=== PATIENT | female | born 1960 | race Two or more races ===

== ENCOUNTER → 2021-08-20 | Outpatient (CLI) | payer SELFPAY ==
--- NOTE | 2021-08-20 16:26 | RAD ---
AP and Lateral Views of the Chest 08/20/2021 4:07 PM Indication: Reason: SHORT OF AIR Comparison: None Findings: There is a masslike opacity in the right midlung measuring approximately 2.5 cm in diameter . Findings are concerning for malignancy. Recommend CT chest with contrast for further characterizati on. Left lung grossly clear. Heart size normal. No acute osseous changes are appreciated. IMPRESSION: 2.5 cm masslike opacity right midlung. CT chest with contrast recommended for further tarun luation. Electronically signed by: Esa Walker MD (08/20/2021 4:24 PM) [id number]
== END ==
LOC: RAD 16:00
PROVIDERS: ATTEND Nurse Practitioner Family
DX: R91.8 Other nonspecific abnormal finding of lung field (principal); R06.02 Shortness of breath
CPT/HCPCS: 71046

== ENCOUNTER → 2022-01-03 | Outpatient (CLI) | payer OTHER ==
--- NOTE | 2022-01-03 12:16 | RAD ---
EXAMINATION: CT Chest Without IV contrast. INDICATION:61 years, Female, abnormal chest radiograph. COMPARISON: 08/20/2021. TECHNIQUE: Spiral CT was obtained from the jugular notch through the posterior costophrenic recess. S agittal and coronal reformats were obtained. Exposure: One or more of the following individualized dose reduction techniques were utilized for thi s examination: 1. Automated exposure control 2. Adjustment of the mA and/or kV according to patient size 3. Use of iterative reconstruction technique. FINDINGS: LUNGS/PLEURA: Central airways are patent. Linear scarring in the left upper lobe. Nodular linear opac ity in the right upper lobe corresponds to previously seen masslike opacity on radiograph. Multifocal patchy pleural-based groundglass opacities in the left lower lobe. No pleural effusion or pneumothor ax. MEDIASTINUM: No pathologic mediastinal or hilar adenopathy. The thoracic aorta and pulmonary arteries are normal in caliber. The heart is normal in size. No pericardial effusion. Moderate calcified jhonny nary atherosclerosis. The visualized thyroid and the esophagus are unremarkable. AXILLA/SOFT TISSUE: No supraclavicular or axillary adenopathy. Regional soft tissues are within dhruv l limits. UPPER ABDOMEN: Cholecystectomy. Rosendo-en-Y gastric bypass changes. Small sliding hiatal hernia. BONES: No evidence of acute fractures or aggressive osseous lesions. IMPRESSION: 1. Nodular linear opacity in the right upper lobe corresponds to previously seen masslike opacity on radiograph. Findings favor to represent chronic scarring. Recommend 3 months follow-up with CT chest to ensure resolution/stability. 2. Multifocal patchy pleural-based groundglass opacities in the left lower lobe, etiology includes i nfectious/inflammatory process. 3. Moderate calcified coronary atherosclerosis. Electronically signed by: Nabeel Wood MD (01/03/2022 12:13 PM) [facility]
== END ==
LOC: CT 10:24
PROVIDERS: ATTEND Internal Medicine Pulmonary Disease
DX: R91.8 Other nonspecific abnormal finding of lung field (principal); I25.10 Atherosclerotic heart disease of native coronary artery without angina pectoris; K44.9 Diaphragmatic hernia without obstruction or gangrene; Z90.49 Acquired absence of other specified parts of digestive tract
CPT/HCPCS: 71250